=== PATIENT | female | born 1980 | race Hispanic/Latino ===

== ENCOUNTER 2024-10-22 12:07 | Outpatient (CLI) | payer BC | END 2024-10-22 12:08 | disposition home or self-care (01) | LOC: CSHRAD 12:07 | PROVIDERS: ATTEND Internal Medicine Hematology & Oncology | DX: R50.9 Fever, unspecified (principal); R05.9 Cough, unspecified; C20 Malignant neoplasm of rectum | CPT/HCPCS: 71046 ==